=== PATIENT | male | born 1935 | race Caucasian/White ===

== ENCOUNTER 2017-07-31 09:14 | Inpatient (IN) | payer MEDICARE, MEDICAID ==
--- NOTE | 2017-07-31 09:51 | ED Physician Chart ---
ED Chief Complaint/HPI - Patient Information Date Seen:: 07/31/17 Time Seen:: 09:35 Chief Complaint:: penitentiary placement History of Present Illness:: Family wants the patient placed in a penitentiary. 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 He has a private physician in [place] who did recent laboratory tests which showed some liver function abnormality. Patient's had no recent fever. No weight loss. Patient's had confusion for about 1 year. Allergies:: Allergies Allergy/AdvReac Type Severity Reaction Status Date / Time No Known Allergies Allergy Verified 07/31/17 09:31 Vitals:: Vital Signs - 8 hr 07/31/17 09:32 Temp 97.2 F HR 75 RR 16 BP 135/62 O2 Sat % 96 Historian:: Family Member Review:: Nurse's Note Reviewed ED Review of Systems - Review of Systems General/Constitutional: No fever, No chills Skin: No skin lesions Head: No headache Eyes: No loss of vision ENT: No earache Neck: No neck pain Cardio Vascular: No chest pain Pulmonary: No SOB GI: No nausea, No vomiting, No diarrhea G/U: No dysuria Musculoskeletal: No bone or joint pain Endocrine: No polyuria, No polydipsia Psychiatric: Prior psych history, Other (dementia) Hematopoietic: No bruising Allergic/Immuno: No urticaria Neurological: No syncope, No focal symptoms ED Past Medical History - Past Medical History Past Medical History: Dementia Family History: HTN, Other (hyperlipidemia) Social History: Non Smoker, No Alcohol, Other (drank alcohol in moderation formally; may have smoked cigarettes slightly in the past) Surgical History: other (left forearm for fracture) Psychiatricy History: Dementia Medication: Reviewed Family Medical History - Family Member Mother History Unknown: Yes ED Physical Exam - Physical Examination General/Constitutional: Well-developed, well-nourished, Alert, No distress Head: Atraumatic Eyes: Lids, conjuctiva normal, PERRL Other Eyes comments:: Arcus senilis Skin: Nl inspection, No rash, No skin lesions, No ecchymosis, Well hydrated, No lymphadenopathy ENMT: External ears, nose nl, Lips, teeth, gums nl, Oropharynx nl Neck: No nuchal rigidity Respiratory: Nl effort/Exclusion, Clear to Auscultation Cardio Vascular: RRR, No murmur, gallop, rubs, NL S1 S2 GI: No tenderness/rebounding/guarding, No organomegaly, No hernia, Normal BS's, Nondistended : No CVA tenderness Extremities: No tenderness or effusion Neuro/Psych: No focal deficits Misc: No paraspinal tenderness ED Labs/Radiology/EKG Results - Lab Results Results: Laboratory Results - last 24 hr 07/31/17 07/31/17 07/31/17 09:55 09:55 09:55 WBC 7.3 RBC 4.93 Hgb 14.4 Hct 43.6 MCV 88.5 MCH 29.2 MCHC Differential 33.0 RDW 14.4 Plt Count 265 MPV 8.0 Neutrophils % 74.6 Lymphocytes % 19.3 L Monocytes % 5.1 Eosinophils % 0.7 Basophils % 0.3 Sodium 135 L Potassium 3.5 Chloride 103 Carbon Dioxide 27.0 Anion Gap 8.5 BUN 14 Creatinine 0.9 Est GFR ( Amer) TNP Est GFR (Non-Af Amer) TNP BUN/Creatinine Ratio 15.6 Glucose 79 Calcium 9.4 Magnesium 2.1 Total Bilirubin 0.8 AST 20 ALT 8 Alkaline Phosphatase 90 Ammonia Total Protein 6.6 Albumin 3.5 L Globulin 3.1 Albumin/Globulin Ratio 1.1 TSH Urine Source Urine Color Urine Clarity Urine pH Ur Specific [place] Urine Protein Urine Glucose (UA) Urine Ketones Urine Blood Urine Nitrate Urine Bilirubin Urine Urobilinogen Ur Leukocyte Esterase Urine RBC Urine WBC Ur Epithelial Cells Urine Bacteria Coarse Granular Casts Urine Mucus 07/31/17 07/31/17 07/31/17 09:55 09:55 10:00 WBC RBC Hgb Hct MCV MCH MCHC Differential RDW Plt Count MPV Neutrophils % Lymphocytes % Monocytes % Eosinophils % Basophils % Sodium Potassium Chloride Carbon Dioxide Anion Gap BUN Creatinine Est GFR ( Amer) Est GFR (Non-Af Amer) BUN/Creatinine Ratio Glucose Calcium Magnesium Total Bilirubin AST ALT Alkaline Phosphatase Ammonia 32 Total Protein Albumin Globulin Albumin/Globulin Ratio TSH 1.73 Urine Source RANDOM Urine Color YELLOW Urine Clarity CLEAR Urine pH 5.5 Ur Specific [place] 1.015 Urine Protein NEGATIVE Urine Glucose (UA) NEGATIVE Urine Ketones NEGATIVE Urine Blood MODERATE H Urine Nitrate NEGATIVE Urine Bilirubin NEGATIVE Urine Urobilinogen 1.0 Ur Leukocyte Esterase NEGATIVE Urine RBC 5-10 H Urine WBC 2-5 Ur Epithelial Cells MODERATE Urine Bacteria 1+ H Coarse Granular Casts 2-5 H Urine Mucus FEW - Radiology Results Results: Chest x-ray showed slight pleural effusion or reaction at the left base but was otherwise normal. CT of the head showed atrophy only. - EKG Interpretations Rate & Rhythm: normal sinus rhythm with a rate is 68 [place]: normal axis Comments:: T wave flattening in leads 3 and aVF ED Septic Shock - . Is Septic Shock (SBP<90, OR Lactate>4 mmol\L) present?: No - <6hrs of presentation: Vital Signs: Vital Signs - 8 hr 07/31/ 09:32 Temp 97.2 F HR 75 RR 16 BP 135/62 O2 Sat % 96 ED Reassessment (Disposition) - Reassessment Reassessment Condition:: Unchanged - Diagnosis Diagnosis:: Altered mental status; dementia - Patient Disposition Admitted to:: Med/Surg Spoke to:: Marcos Long Admitting Medical Physician:: Marcos Long Condition at Disposition:: Stable, Unchanged
[2017-07-31 10:06] LABS: % BASOPHILS 0.3 % (0.0-2.0); % EOSINOPHILS 0.7 % (0.0-5.0); % LYMPHOCYTES 19.3 % (20.0-50.0); % MONOCYTES 5.1 % (2.0-10.0); % NEUTROPHILS 74.6 % (40.0-80.0); EOSINOPHILE ABSOLUTE 0.1 Th/cmm (0.1-0.4); HEMATOCRIT 43.6 % (41.0-60); HEMOGLOBIN 14.4 gm/dL (12-16); LYMPHOCYTE ABSOLUTE 1.4 Th/cmm (1.5-3.0); MEAN CELL VOLUME 88.5 fl (80-99); MEAN CORPUSCULAR HEMOGLOBIN 29.2 pg (27.0-31.0); MONOCYTE ABSOLUTE 0.4 Th/cmm (0.3-1.0); NEUTROPHILE ABSOLUTE 5.4 Th/cmm (1.8-8.0); PLATELET COUNT 265 Th/cmm (150-400); RED BLOOD COUNT 4.93 Mil/cmm (3.80-5.80); RED CELL DISTRIBUTION WIDTH 14.4 % (11.5-20.0); WHITE BLOOD COUNT 7.3 Th/cmm (4.8-10.8)
[2017-07-31 10:19] LABS: ALB/GLOB RATIO 1.1 (1.0-1.8); ALBUMIN 3.5 gm/dL (4.2-5.5); ALKALINE PHOSPHATASE 90 U/L (34-104); ANION GAP 8.5 (7.0-16.0); BILIRUBIN,TOTAL 0.8 mg/dL (0.3-1.0); BUN - UREA NITROGEN 14 mg/dL (7-25); CALCIUM SERUM 9.4 mg/dL (8.6-10.3); CHLORIDE 103 mEq/L (98-107); CREATININE - SERUM 0.9 mg/dL (0.7-1.3); GLUCOSE 79 mg/dL (70-105); POTASSIUM SERUM 3.5 mEq/L (3.5-5.1); SGOT 20 U/L (13-39); SGPT/ALT 8 U/L (7-52); SODIUM SERUM 135 mEq/L (136-145); TOTAL PROTEIN,SERUM 6.6 gm/dL (6.0-8.3)
[2017-07-31 10:49] LABS: URINE MICROSCOPIC INDICATED? YES; URINE SOURCE RANDOM
[2017-07-31 10:52] LABS: URINE BILIRUBIN NEGATIVE (NEGATIVE); URINE BLOOD MODERATE (NEGATIVE); URINE GLUCOSE (UA) NEGATIVE (NEGATIVE); URINE KETONE NEGATIVE (NEGATIVE); URINE LEUKOCYTE ESTERASE NEGATIVE (NEGATIVE); URINE NITRATE NEGATIVE (NEGATIVE); URINE PH 5.5 (4.6 - 8.0); URINE PROTEIN NEGATIVE (NEGATIVE)
[2017-07-31 10:59] LABS: URINE CLARITY CLEAR (CLEAR); URINE COLOR YELLOW
[2017-07-31 11:01] LABS: URINE BACTERIA 1+ /hpf (NONE SEEN); URINE EPITHELIAL CELLS MODERATE /lpf (FEW)
--- NOTE | 2017-07-31 11:26 | Diagnostic Imaging Report ---
Portable chest x-ray History: Shortness of breath Allowing for portable technique the heart size is normal. No focal pulmonary parenchymal processes. No hilar or mediastinal abnormalities. Impression: No acute abnormalities.
--- NOTE | 2017-07-31 11:30 | Diagnostic Imaging Report ---
CT scan of the brain without intravenous contrast HISTORY: Stroke, CVA Total DLP equals 760 CTDI equals 41.6 Axial sections were obtained from the base of the skull to the vertex. There is enlargement of the ventricular system along with enlargement of cerebral sulci and subarachnoid cisterns reflecting generalized atrophy. There is rather extensive abnormal hypodensity throughout the supratentorial white matter regions. No significant mass effect. The findings may be associated with chronic small vessel ischemic disease. If necessary, an MRI exam would provide additional assessment and evaluation. No acute intracerebral hemorrhage. Again, no mass effect or shift of midline structures. No localized extra-axial masses or abnormal fluid collections. Atherosclerotic calcification is seen in the region of the vertebral and basilar arteries at the base of the skull. IMPRESSION: 1. No acute focal abnormalities 2. Rather extensive supratentorial white matter changes. The findings may reflect chronic small vessel ischemic disease. If needed, an MRI exam would provide additional assessment and evaluation. 3. Cerebral atrophy 4. Atherosclerotic vascular changes
[2017-07-31] MEDS ORDERED: Maalox 30 mL Cup PO PRN (13:49)
[2017-07-31] MEDS ORDERED: guaiFENesin 200 MG/10 ML UDC PO PRN (13:49)
[2017-07-31] MEDS ORDERED: Albuterol Nebulizer 2.5mg/3mL HHN PRN (13:49)
[2017-07-31] MEDS ORDERED: D5-0.45NS 1,000 ML IV SCH (14:00)
[2017-07-31] MEDS ORDERED: Haloperidol Lactate 5 mg/mL 1mL Vial IM ONE (16:13)
[2017-07-31] MEDS: Levofloxacin 500mg/100mL 500 MG/100 ML BAG IV SCH (17:42)
[2017-07-31 18:47] VITALS: BP 143/59
[2017-07-31] MEDS ORDERED: Influenza Vaccine 0.5 mL Syr IM ONE (18:58)
[2017-07-31] MEDS ORDERED: Pneumococcal Vaccine 0.5 mL Vial IM ONE (18:58)
--- NOTE | 2017-07-31 20:55 | History and Physical ---
History of Present Illness - HPI Chief Complaint: forgetfulness, frequent falls, poor oral intake HPI: This is a 82 year old male admitted to the medr unit. According to daughter at bedside they have noticed that patient has been having frequent falls with poor oral intake. She states that she recently took the patient to their PCP's office and stated that he had some abnormal LFT'S. Vital Signs: Last Vital Signs Temp 97 F 07/31/17 20:00 Pulse 93 07/31/17 20:00 Resp 20 07/31/17 20:00 BP 128/72 07/31/17 20:00 Pulse Ox 100 07/31/17 20:00 Past Medical History Other History: dementia Family Medical History - Family Member Mother History Unknown: Yes Social History Smoke: Quit Alcohol: None Drugs: None Lives: With Family - Medications Home Medications: Home Medication Medication Instructions Recorded Type Aspirin EC [Ecotrin] 1 tab PO DAILY 07/31/17 History Atorvastatin Calcium [Lipitor] 1 tab PO HS 07/31/17 History Clopidogrel [Plavix] 1 tab PO DAILY 07/31/17 History Docusate Sodium [Colace] 250 mg PO BID 07/31/17 History Famotidine [Pepcid] 20 mg PO DAILY 07/31/17 History Memantine [Namenda] 1 tab PO DAILY 07/31/17 History - Allergies Allergies/Adverse Reactions: Allergies Allergy/AdvReac Type Severity Reaction Status Date / Time No Known Allergies Allergy Verified 07/31/17 09:31 Review of Systems - Review of Systems Constitutional: Report: No Significant Eyes: Report: No Significant ENT: Report: No Significant Respiratory: Report: No Significant Cardiovascular: Report: No Significant Neurological: Report: No Significant Physical Exam - Physical Exam HEENT: Report: Ears Nose Throat within normal limits Neck: Report: Within normal limits Cardiovascular Systems: Report: +s1/s2 noted, Regular, Rate and Rhythm Respiratory: Report: Breath Sounds are within normal limits Back: Report: Inspection of back is within normal limits. Extremities: Report: Non-tender to palpation. Skin: Report: Color of skin is within normal limits Neuro/Psych: Report: Other (awake, alert x1 to name ) - Assessment Assessment: failure to thrive acute uti dementia frequent falls - Plan Plan: ivf for hydration iv levaquin cbc/bmp/lft/hgba1c/lipid panel in am fall precautions psych eval continue current orders
[2017-07-31] MEDS: Atorvastatin Calcium 10 MG TAB PO SCH (22:07)
[2017-08-01 06:43] LABS: % BASOPHILS 1.8 % (0.0-2.0); % EOSINOPHILS 1.6 % (0.0-5.0); % LYMPHOCYTES 22.4 % (20.0-50.0); % MONOCYTES 6.5 % (2.0-10.0); % NEUTROPHILS 67.7 % (40.0-80.0); BASOPHILE ABSOLUTE 0.1 Th/cumm (0-0.2); EOSINOPHILE ABSOLUTE 0.1 Th/cmm (0.1-0.4); HEMATOCRIT 40.4 % (41.0-60); HEMOGLOBIN 13.6 gm/dL (12-16); LYMPHOCYTE ABSOLUTE 1.3 Th/cmm (1.5-3.0); MEAN CELL VOLUME 89.2 fl (80-99); MEAN CORPUSCULAR HEMOGLOBIN 29.9 pg (27.0-31.0); MEAN CORPUSCULAR HGB CONC 33.5 pg (28.0-36.0); MEAN PLATELET VOLUME 8.1 fl; MONOCYTE ABSOLUTE 0.4 Th/cmm (0.3-1.0); NEUTROPHILE ABSOLUTE 3.8 Th/cmm (1.8-8.0); PLATELET COUNT 227 Th/cmm (150-400); RED BLOOD COUNT 4.53 Mil/cmm (3.80-5.80); RED CELL DISTRIBUTION WIDTH 14.8 % (11.5-20.0)
[2017-08-01 06:48] LABS: WHITE BLOOD COUNT 5.7 Th/cmm (4.8-10.8)
--- NOTE | 2017-08-01 07:00 | Progress Notes ---
DATE: 08/01/2017 AGE: 82. SEX: Male. PHYSICIAN: Dr. Long. PACKING AND STAMPING MACHINE OPERATOR: Dr. Meza. TYPE OF THE REPORT: Psychiatric consult. REASON FOR THE CONSULT: Evaluating patient's mental status and poor oral intake. HISTORY OF PRESENT ILLNESS: The patient is an 82-year-old male who was admitted to the hospital because of poor oral intake and also the patient has been having frequent falls. The patient also has some of liver function tests according to the admission report. Chart reviewed and patient interviewed. The patient seems to be slightly confused and forgetful. He also is anxious. Also seems to be slightly dehydrated. The patient also was not able to tell me about today's date and he seems to be forgetful. He was a poor historian and most of the information obtained from the chart. The patient's family wants the patient to be placed in a longterm. His has been taking care of him and she is going to surgery and the family has not been able to care of them. He also has been forgetful and confused. PAST PSYCHIATRIC HISTORY: Noncontributory except for dementia. PAST MEDICAL HISTORY: Noncontributory. SOCIAL HISTORY: The patient currently lives with his family. No known alcohol or street drug use. ALLERGIES: No known allergies. MENTAL STATUS EXAM: The patient appears his stated age. Anxious. Disheveled. Calm. Thought processes are with poverty of speech. The patient denied any hallucinations or delusions, but seems to be slightly paranoid. The patient denied any thoughts of suicide or homicide. The patient is alert, but seems to be confused. Impaired immediate and recent memory, but intact remote memory. Poor insight and poor judgment. ASSESSMENT: PRIMARY DIAGNOSIS: Depressive disorder, unspecified. SECONDARY DIAGNOSIS: Dementia, moderate, with psychotic features. TREATMENT PLAN: We will increase Namenda to 5 mg twice a day. Also, we will start the patient on Remeron 7.5 mg at bedtime and we will continue to follow up. Thanks to Dr. Long and we will follow up with you. JOB# [id number]
[2017-08-01 07:16] LABS: ALB/GLOB RATIO 1.2 (1.0-1.8); ALBUMIN 3.2 gm/dL (4.2-5.5); ALKALINE PHOSPHATASE 74 U/L (34-104); ANION GAP 8.1 (7.0-16.0); BILIRUBIN,TOTAL 0.8 mg/dL (0.3-1.0); BUN - UREA NITROGEN 17 mg/dL (7-25); CALCIUM SERUM 9.2 mg/dL (8.6-10.3); CARBON DIOXIDE 25.9 mEq/L (21.0-31.0); CHLORIDE 108 mEq/L (98-107); CHOLESTEROL 151 mg/dL (<200); GLUCOSE 76 mg/dL (70-105); HDL -HIGH DENSITY LIPOPROTEIN 46 mg/dL (23-92); SGOT 24 U/L (13-39); SGPT/ALT 9 U/L (7-52); SODIUM SERUM 138 mEq/L (136-145); TOTAL PROTEIN,SERUM 5.9 gm/dL (6.0-8.3); TRIGLYCERIDES 59 mg/dL (<150)
[2017-08-01 07:17] LABS: BILIRUBIN,DIRECT 0.08 mg/dL (0.0-0.2)
--- NOTE | 2017-08-01 08:12 | Diagnostic Imaging Report ---
Portable chest x-ray HISTORY: Cough The heart size is difficult to assess with portable technique in a poor inspiration. Compared with the prior exam of July 31, 2017, pleural reaction noted about the left costophrenic angle suggesting pleural thickening. A minimal effusion cannot be definitely excluded. IMPRESSION: 1. No significant change from July 31, 2017 2. Pleural reaction about the left gastric angle suggesting pleural thickening. A minimal effusion cannot be definitely excluded.
--- NOTE | 2017-08-01 11:33 | General Progress Note ---
Subjective - Review of Systems Events since last encounter: poor oral intake in no acute distress Objective - Results Result Diagrams: 08/01/17 06:20 08/01/17 06:20 Recent Labs: Laboratory Last Values WBC 5.7 Th/cmm (4.8-10.8) D 08/01/17 06:20 RBC 4.53 Mil/cmm (3.80-5.80) 08/01/17 06:20 Hgb 13.6 gm/dL (12-16) 08/01/17 06:20 Hct 40.4 % (41.0-60) L 08/01/17 06:20 MCV 89.2 fl (80-99) 08/01/17 06:20 MCH 29.9 pg (27.0-31.0) 08/01/17 06:20 MCHC Differential 33.5 pg (28.0-36.0) 08/01/17 06:20 RDW 14.8 % (11.5-20.0) 08/01/17 06:20 Plt Count 227 Th/cmm (150-400) 08/01/17 06:20 MPV 8.1 fl 08/01/17 06:20 Neutrophils % 67.7 % (40.0-80.0) 08/01/17 06:20 Lymphocytes % 22.4 % (20.0-50.0) 08/01/17 06:20 Monocytes % 6.5 % (2.0-10.0) 08/01/17 06:20 Eosinophils % 1.6 % (0.0-5.0) 08/01/17 06:20 Basophils % 1.8 % (0.0-2.0) 08/01/17 06:20 Sodium 138 mEq/L (136-145) 08/01/17 06:20 Potassium 4.0 mEq/L (3.5-5.1) 08/01/17 06:20 Chloride 108 mEq/L (98-107) H 08/01/17 06:20 Carbon Dioxide 25.9 mEq/L (21.0-31.0) 08/01/17 06:20 Anion Gap 8.1 (7.0-16.0) 08/01/17 06:20 BUN 17 mg/dL (7-25) 08/01/17 06:20 Creatinine 1.0 mg/dL (0.7-1.3) 08/01/17 06:20 Est GFR ( Amer) TNP 08/01/17 06:20 Est GFR (Non-Af Amer) TNP 08/01/17 06:20 BUN/Creatinine Ratio 17.0 08/01/17 06:20 Glucose 76 mg/dL (70-105) 08/01/17 06:20 Calcium 9.2 mg/dL (8.6-10.3) 08/01/17 06:20 Magnesium 2.1 mg/dL (1.9-2.7) 07/31/17 09:55 Total Bilirubin 0.8 mg/dL (0.3-1.0) 08/01/17 06:20 Direct Bilirubin 0.08 mg/dL (0.0-0.2) 08/01/17 06:20 AST 24 U/L (13-39) 08/01/17 06:20 ALT 9 U/L (7-52) 08/01/17 06:20 Alkaline Phosphatase 74 U/L (34-104) 08/01/17 06:20 Ammonia 32 umol/L (16-53) 07/31/17 09:55 Total Protein 5.9 gm/dL (6.0-8.3) L 08/01/17 06:20 Albumin 3.2 gm/dL (4.2-5.5) L 08/01/17 06:20 Globulin 2.7 gm/dL 08/01/17 06:20 Albumin/Globulin Ratio 1.2 (1.0-1.8) 08/01/17 06:20 Triglycerides 59 mg/dL (<150) 08/01/17 06:20 Cholesterol 151 mg/dL (<200) 08/01/17 06:20 LDL Cholesterol Direct 97 mg/dL (75-193) 08/01/17 06:20 HDL Cholesterol 46 mg/dL (23-92) 08/01/17 06:20 TSH 1.73 uIU/ml (0.34-5.60) 07/31/17 09:55 Urine Source RANDOM 07/31/17 10:00 Urine Color YELLOW 07/31/17 10:00 Urine Clarity CLEAR (CLEAR) 07/31/17 10:00 Urine pH 5.5 (4.6 - 8.0) 07/31/17 10:00 Ur Specific [place] 1.015 (1.005-1.030) 07/31/17 10:00 Urine Protein NEGATIVE mg/dL (NEGATIVE) 07/31/17 10:00 Urine Glucose (UA) NEGATIVE mg/dL (NEGATIVE) 07/31/17 10:00 Urine Ketones NEGATIVE mg/dL (NEGATIVE) 07/31/17 10:00 Urine Blood MODERATE (NEGATIVE) H 07/31/17 10:00 Urine Nitrate NEGATIVE (NEGATIVE) 07/31/17 10:00 Urine Bilirubin NEGATIVE (NEGATIVE) 07/31/17 10:00 Urine Urobilinogen 1.0 E.U./dL (0.2 - 1.0) 07/31/17 10:00 Ur Leukocyte Esterase NEGATIVE (NEGATIVE) 07/31/17 10:00 Urine RBC 5-10 /hpf (0-5) H 07/31/17 10:00 Urine WBC 2-5 /hpf (0-5) 07/31/17 10:00 Ur Epithelial Cells MODERATE /lpf (FEW) 07/31/17 10:00 Urine Bacteria 1+ /hpf (NONE SEEN) H 07/31/17 10:00 Coarse Granular Casts 2-5 /lpf (NONE SEEN) H 07/31/17 10:00 Urine Mucus FEW /lpf (FEW) 07/31/17 10:00 - Physical Exam Vitals and I&O: Vital Signs Temp 96.8 F 08/01/17 10:00 Pulse 66 08/01/17 10:00 Resp 19 08/01/17 10:00 BP 140/70 08/01/17 10:00 Pulse Ox 95 08/01/17 10:00 Intake & Output 07/31/17 08/01/17 08/01/17 18:59 06:59 18:59 Intake Total 450 100 Output Total 50 Balance 450 50 Weight (lbs) 80.739 kg 71.169 kg Intake: Oral 450 100 Output: Urine 50 Other: # Voids 3 1 # Bowel Movements 1 0 Stool Characteristics Soft Soft Active Medications: Current Medications Acetaminophen (Tylenol) 650 mg PO Q4HR PRN PRN Reason: Pain Or Fever above 101 Stop: 09/29/17 13:48 Al Hydrox/Mg Hydrox/Simethicone (Maalox) 30 ml PO Q6HR PRN PRN Reason: Dyspepsia Stop: 09/29/17 13:48 Albuterol Sulfate (Albuterol 2.5mg/3ml Neb Ud) 2.5 mg HHN Q2HRT PRN PRN Reason: Shortness of Breath or Wheeze Stop: 09/29/17 13:48 Aspirin (Ecotrin) 81 mg PO DAILY [facility] Stop: 09/30/17 08:59 Last Admin: 08/01/17 09:30 Dose: 81 mg Atorvastatin Calcium (Lipitor) 10 mg PO HS BIBI PRN Reason: Protocol Stop: 09/29/17 20:59 Last Admin: 07/31/17 22:07 Dose: Not Given Clopidogrel Bisulfate (Plavix) 75 mg PO DAILY [facility] Stop: 09/30/17 08:59 Last Admin: 08/01/17 09:30 Dose: 75 mg Docusate Sodium (Colace) 250 mg PO BID [facility] Stop: 09/29/17 16:59 Last Admin: 08/01/17 09:30 Dose: 250 mg Famotidine (Pepcid) 20 mg PO DAILY [facility] Stop: 09/30/17 08:59 Last Admin: 08/01/17 09:30 Dose: 20 mg Guaifenesin (Robitussin) 100 mg PO Q4H PRN PRN Reason: Cough or Congestion Stop: 09/29/17 13:48 Dextrose/Sodium Chloride (D5-0.45ns) 1,000 mls @ 70 mls/hr IV .[id number] [facility] Stop: 09/29/17 13:59 Last Admin: 07/31/17 17:43 Dose: 70 mls/hr Levofloxacin (Levaquin Pb) 500 mg in 100 mls @ 100 mls/hr IV Q24HR BIBI Stop: 09/29/17 13:59 Last Admin: 07/31/17 17:42 Dose: 100 mls/hr Lorazepam (Ativan) 1 mg IVP Q4HR PRN; Protocol PRN Reason: Agitation Stop: 09/29/17 16:53 Last Admin: 08/01/17 09:28 Dose: 1 mg Memantine (Namenda) 5 mg PO BID [facility] Stop: 09/30/17 08:59 Last Admin: 08/01/17 09:30 Dose: 5 mg Mirtazapine (Remeron) 7.5 mg PO HS BIBI PRN Reason: Protocol Stop: 09/30/17 20:59 Ondansetron HCl (Zofran) 4 mg IV Q8H PRN PRN Reason: Nausea / Vomiting Stop: 09/29/17 13:48 Sodium Chloride (Saline Flush) 10 ml IV QSHIFT [facility] Stop: 09/29/17 19:59 Last Admin: 08/01/17 10:12 Dose: 10 ml Zolpidem Tartrate (Ambien) 10 mg PO HS PRN PRN Reason: Insomnia Stop: 09/29/17 13:48
[2017-08-01] MEDS ORDERED: Probiotic Screen MC PRN (12:15)
[2017-08-01] MEDS: Levofloxacin 500mg/100mL 500 MG/100 ML BAG IV SCH (13:50)
[2017-08-01 16:48] LABS: A1C % 5.2 % (4.0-6.0)
[2017-08-01] MEDS: Atorvastatin Calcium 10 MG TAB PO SCH (20:58)
[2017-08-02 07:03] LABS: % BASOPHILS 0.2 % (0.0-2.0); % EOSINOPHILS 0.8 % (0.0-5.0); % LYMPHOCYTES 15.3 % (20.0-50.0); % MONOCYTES 9.5 % (2.0-10.0); % NEUTROPHILS 74.2 % (40.0-80.0); EOSINOPHILE ABSOLUTE 0.1 Th/cmm (0.1-0.4); HEMATOCRIT 43.8 % (41.0-60); HEMOGLOBIN 14.4 gm/dL (12-16); LYMPHOCYTE ABSOLUTE 1.2 Th/cmm (1.5-3.0); MEAN CELL VOLUME 88.4 fl (80-99); MEAN CORPUSCULAR HEMOGLOBIN 29.1 pg (27.0-31.0); MEAN CORPUSCULAR HGB CONC 32.9 pg (28.0-36.0); MEAN PLATELET VOLUME 8.3 fl; MONOCYTE ABSOLUTE 0.8 Th/cmm (0.3-1.0); NEUTROPHILE ABSOLUTE 5.8 Th/cmm (1.8-8.0); PLATELET COUNT 247 Th/cmm (150-400); RED BLOOD COUNT 4.96 Mil/cmm (3.80-5.80); RED CELL DISTRIBUTION WIDTH 14.3 % (11.5-20.0)
[2017-08-02 07:05] LABS: WHITE BLOOD COUNT 7.9 Th/cmm (4.8-10.8)
[2017-08-02 07:08] LABS: ALB/GLOB RATIO 1.3 (1.0-1.8); ALBUMIN 3.6 gm/dL (4.2-5.5); ALKALINE PHOSPHATASE 79 U/L (34-104); ANION GAP 10.2 (7.0-16.0); BILIRUBIN,TOTAL 0.8 mg/dL (0.3-1.0); BUN - UREA NITROGEN 15 mg/dL (7-25); CALCIUM SERUM 9.5 mg/dL (8.6-10.3); CARBON DIOXIDE 21.2 mEq/L (21.0-31.0); CHLORIDE 110 mEq/L (98-107); CREATININE - SERUM 0.8 mg/dL (0.7-1.3); GLUCOSE 72 mg/dL (70-105); POTASSIUM SERUM 3.4 mEq/L (3.5-5.1); SGOT 56 U/L (13-39); SGPT/ALT 16 U/L (7-52); SODIUM SERUM 138 mEq/L (136-145); TOTAL PROTEIN,SERUM 6.3 gm/dL (6.0-8.3)
[2017-08-02] MEDS ORDERED: Lactobacillus Rhamnosus GG 15 Billion CFU CAP.SPRINK PO SCH (09:00)
--- NOTE | 2017-08-08 22:55 | Discharge Summary ---
DATE OF DISCHARGE: 08/02/2017 The patient was admitted on 07/31/2017 and was discharged to [facility] on 08/02/2017. The patient is known to have history of underlying psychosis, was initially admitted to the medical floor for failure to thrive, UTI, dementia and history of recurrent falls. The patient had a complete workup done and including antibiotics. The patient was in stable condition on 08/02/2017, with final diagnoses of severe psychosis, UTI improving, severe dementia, malnutrition. The patient was sent to [facility] in stable condition. JOB# [id number]
== END 2017-08-02 12:20 | DRG 689 ==
LOC: ER 09:14 → MSI 12:10
PROVIDERS: ADMIT Internal Medicine; ATTEND Internal Medicine
DX: N39.0 Urinary tract infection, site not specified (principal); G92 Toxic encephalopathy; F03.91 Unspecified dementia, unspecified severity, with behavioral disturbance; R62.7 Adult failure to thrive; F32.9 Major depressive disorder, single episode, unspecified; Z91.81 History of falling; Z82.49 Family history of ischemic heart disease and other diseases of the circulatory system; Z79.82 Long term (current) use of aspirin
CPT/HCPCS: 36415-UA; 70450-TC; 71045-TC; 80048-TC; 80053-TC; 80061-TC; 80076-TC; 81001-TC; 82140-TC; 83036-90; 83735-TC; 84443-TC; 85025-TC; 87086-90; 93005; 94760; J1200; J1630; J1956; J2060; Z7610

== ENCOUNTER 2017-08-02 12:34 | Inpatient (IN) | payer MEDICARE, MEDICAID ==
--- NOTE | 2017-08-02 13:11 | Internal Medicine Prog Note ---
Internal Medicine Subjective - Subjective Service Date: 08/02/17 Patient seen and examined:: with staff Patient is:: awake, verbal Per staff patient has:: tolerating meds Internal Medicine Objective - Physical Exam Vitals and I&O: Intake & Output 08/01/17 08/02/17 08/02/17 18:59 06:59 18:59 Weight (lbs) 156 lb General: alert HEENT: NC/AT, PERRLA Neck: Supple Lungs: CTAB Cardiovascular: RRR, Normal S1, Normal S2 Abdomen: soft, non-tender, non-distended, positive bowel sound Internal Medicine Assmt/Plan - Assessment Assessment: failure to thrive acute uti dementia frequent falls - Plan Plan: fall precautions continue current orders
[2017-08-02 13:34] VITALS: BP 121/67
[2017-08-02] MEDS ORDERED: guaiFENesin 200 MG/10 ML UDC PO PRN (13:34)
[2017-08-02] MEDS ORDERED: Albuterol Nebulizer 2.5mg/3mL HHN PRN (13:34)
[2017-08-02] MEDS ORDERED: Maalox 30 mL Cup PO PRN (13:34)
[2017-08-02] MEDS: Atorvastatin Calcium 10 MG TAB PO SCH (21:20)
--- NOTE | 2017-08-03 09:25 | Diagnostic Imaging Report ---
Left shoulder 3 views Indication: Fall Comparison: none Findings: Mild degenerative changes are noted. No evidence of an acute fracture or dislocation. Mild osteophytic spurring is noted. No focal soft tissue swelling. Impression: No evidence of an acute fracture. Mild degenerative changes. In the setting of trauma, if clinical symptoms persist and there is continued concern for an occult fracture, follow up exams in 5-7 days is suggested.
--- NOTE | 2017-08-03 09:27 | Diagnostic Imaging Report ---
Right shoulder 3 views Indication: Fall Comparison: none Findings: Moderate degenerative changes are noted. High riding humeral head is noted. There is a marginal osteophytic spurring is noted. No evidence of acute fracture, dislocation. Impression: No evidence of an acute fracture. High riding humeral head which may be due to chronic rotator cuff tear. Please correlate with clinical history. Moderate degenerative changes. In the setting of trauma, if clinical symptoms persist and there is continued concern for an occult fracture, follow up exams in 5-7 days is suggested.
[2017-08-03] MEDS: Lactobacillus Rhamnosus GG 15 Billion CFU CAP.SPRINK PO SCH (09:53)
--- NOTE | 2017-08-03 19:03 | History & Physical ---
ADMIT DATE: 08/03/2017 CHIEF COMPLAINT: Agitation. HISTORY OF PRESENT ILLNESS: This is an 82-year-old male who was admitted to the Emergency Room. According to ____, the patient lives at home prior to hospitalization and otherwise the patient was sent to the Emergency Room due to agitation and confusion. REVIEW OF SYSTEMS: GENERAL: This is an 82-year-old male that appears as stated. No fever, no chills. HEAD: No headache. No dizziness. EYES: No eye pain, no blurring of vision. NECK: No neck pain, no nuchal rigidity. CHEST: No chest pain. No palpitation. PULMONARY: No coughing. No chest pain or shortness of breath. GASTROINTESTINAL: No diarrhea, no constipation, no abdominal pain. MUSCULOSKELETAL: No joint pain. No muscle pain. SOCIAL HISTORY: The patient lives at home with family prior to hospitalization. PAST SURGICAL HISTORY: Unremarkable. FAMILY HISTORY: Unremarkable. PSYCHIATRIC HISTORY: Includes schizophrenia. PAST MEDICAL HISTORY: Includes diabetes, osteoarthritis, hyperlipidemia, hypertension, coronary artery disease, gastroesophageal reflux disease, and dementia. PHYSICAL EXAMINATION: VITAL SIGNS: Temperature 96.5, heart rate of 88, blood pressure 136/89, respirations 21, and 96% on room air. HEENT: Head is atraumatic and normocephalic. Eyes; bilateral conjunctivae are clear. Bilateral pupils are equal, round, and reactive. NECK: Supple. No JVD. CARDIOVASCULAR: S1 and S2 without murmur. PULMONARY: Clear to auscultation. GASTROINTESTINAL: Soft and nontender without guarding. Positive bowel sounds. MUSCULOSKELETAL: No clubbing. No cyanosis noted. ASSESSMENT: 1. Psychosis. 2. Dementia. 3. Hypertension. 4. Hyperlipidemia. 5. Coronary artery disease. 6. Gastroesophageal reflux disease. 7. Osteoarthritis. PLAN: We will keep the patient and admit the patient in Psychiatric Unit. We will follow up with the psychiatrist to monitor the patient's condition and behavior. We will do medication reconciliation accordingly and we are going to monitor the patient's prognosis. Treatment plans were discussed with the patient's nurse. Treatment plans were discussed with Dr. Long. JOB# [id number]
[2017-08-03] MEDS: Atorvastatin Calcium 10 MG TAB PO SCH (21:32)
--- NOTE | 2017-08-04 00:10 | Consultation ---
DATE OF CONSULTATION: 08/03/[address] Meza. CHIEF COMPLAINT: "I am okay." HISTORY OF PRESENT ILLNESS: The patient is an 82-year-old male who was brought in here to [facility] and transferred to the geropsychiatric after the patient has been observed to be more irritable, agitated, and the failure to thrive. Today on [id number] evaluation, the patient is a poor historian. He does not know exactly where he is. He believes that he is in his house. He does not give much information beyond that. Denies any side effects and no manic and hypomanic symptoms. PAST PSYCHIATRIC HISTORY: Unknown. PAST MEDICAL HISTORY: Includes a history of a failure to thrive and UTI. PAST PSYCHIATRIC HISTORY: History of dementia and frequent falls. LEGAL HISTORY: None. FAMILY PSYCHIATRIC HISTORY: None. PSYCHOSOCIAL ENVIRONMENTAL HISTORY: Very limited historian. CURRENT HOME MEDICATIONS: Include albuterol, aspirin, atorvastatin, and Plavix. PAST MEDICAL HISTORY: Includes a history of hyperlipidemia. MENTAL STATUS EXAMINATION: Mildly irritable, severely memory impairment, disorganized, needing redirection for continue maintaining simple ADLs. Limited insight, judgment and impulse control. Unable to assess immediate, recent memory due to the patient's severe memory impairment. ACUTE FUNCTION: Impairment severe, weakness, and poor coping skills. STRENGTHS: Good family support system. WEAKNESSES: As noted above. LABORATORY DATA: Reviewed. PRIMARY DIAGNOSIS: Dementia with severe behavior disturbances. SECONDARY DIAGNOSIS: None. MEDICAL DIAGNOSES: History of high blood pressure and also dementia. ASSESSMENT AND PLAN: The patient is an 82-year-old male with a history of severe dementia and poor appetite, failure to thrive. We will initiate the patient on mirtazapine 7.5 mg to target the patient's underlying depressive symptoms and poor appetite with Namenda 5 mg p.o. b.i.d. We will obtain more collateral baseline information. ESTIMATED LENGTH OF STAY: Between 5 to 10 days. DISCHARGE CRITERIA: The patient is to demonstrate euthymic mood, no suicidal or homicidal. Good psychiatric followup. Good [id number] interaction. [facility]# [id number]
--- NOTE | 2017-08-04 08:54 | General Progress Note ---
Subjective - Review of Systems Events since last encounter: patient awake alert, in no distress Objective - Physical Exam Vitals and I&O: Vital Signs Temp 96.5 F 08/03/17 15:11 Pulse 83 08/04/17 07:43 Resp 18 08/04/17 07:43 BP 136/89 08/03/17 15:11 Pulse Ox 96 08/04/17 07:43 Intake & Output 08/03/17 08/04/17 08/04/17 18:59 06:59 18:59 Intake Total 1300 Balance 1300 Intake: Oral 1300 Other: # Voids 3 # Bowel Movements 1 Active Medications: Current Medications Acetaminophen (Tylenol) 650 mg PO Q4HR PRN PRN Reason: Pain Or Fever above 101 Stop: 10/01/17 13:33 Al Hydrox/Mg Hydrox/Simethicone (Maalox) 30 ml PO Q6HR PRN PRN Reason: Dyspepsia Stop: 10/01/17 13:33 Albuterol Sulfate (Albuterol 2.5mg/3ml Neb Ud) 2.5 mg HHN Q2HRT PRN PRN Reason: Shortness of Breath or Wheeze Stop: 10/01/17 13:33 Aspirin (Ecotrin) 81 mg PO DAILY [facility] Stop: 10/02/17 08:59 Last Admin: 08/03/17 09:53 Dose: 81 mg Atorvastatin Calcium (Lipitor) 10 mg PO HS BIBI PRN Reason: Protocol Stop: 10/01/17 20:59 Last Admin: 08/03/17 21:32 Dose: 10 mg Clopidogrel Bisulfate (Plavix) 75 mg PO DAILY [facility] Stop: 10/02/17 08:59 Last Admin: 08/03/17 09:53 Dose: 75 mg Docusate Sodium (Colace) 250 mg PO BID [facility] Stop: 10/01/17 16:59 Last Admin: 08/03/17 09:53 Dose: 250 mg Famotidine (Pepcid) 20 mg PO DAILY [facility] Stop: 10/02/17 08:59 Last Admin: 08/03/17 09:53 Dose: 20 mg Guaifenesin (Robitussin) 100 mg PO Q4H PRN PRN Reason: Cough or Congestion Stop: 10/01/17 13:33 Lactobacillus Rhamnosus (Culturelle 15b) 1 each PO DAILY [facility] Stop: 10/02/17 08:59 Last Admin: 08/03/17 09:53 Dose: 1 each Lorazepam (Ativan) 0.5 mg PO Q4HR PRN; Protocol PRN Reason: Anxiety Stop: 09/01/17 13:36 Last Admin: 08/03/17 14:17 Dose: 0.5 mg Memantine (Namenda) 5 mg PO BID BIBI Stop: 10/01/17 16:59 Last Admin: 08/03/17 09:54 Dose: 5 mg Mirtazapine (Remeron) 7.5 mg PO HS BIBI PRN Reason: Protocol Stop: 10/01/17 20:59 Last Admin: 08/03/17 21:31 Dose: 7.5 mg Zolpidem Tartrate (Ambien) 10 mg PO HS PRN PRN Reason: Insomnia Stop: 10/01/17 13:33 Last Admin: 08/03/17 21:33 Dose: 10 mg
[2017-08-04] MEDS: Lactobacillus Rhamnosus GG 15 Billion CFU CAP.SPRINK PO SCH (09:24)
--- NOTE | 2017-08-04 17:28 | Progress Notes ---
DATE: SUBJECTIVE: The patient was seen and evaluated. The patient's chart reviewed. This is a psychiatric followup note. Today on [id number] evaluation, nursing staff reported, the patient presents still very disorganized and ____ redirection. Today on [id number] evaluation, the patient is evaluated while he is in a Gianna chair, extremely poor historian. He does not know exactly where he is at. Beyond that information, he reports just everything is okay, but if he did then derailed. MENTAL STATUS EXAMINATION: Derailed disorganized. ASSESSMENT AND PLAN: An 82-year-old male with a history of severe dementia with poor appetite and failure to thrive. We will continue with the current medication regimen of 7.5 to target the patient's underlying depressive symptoms that exacerbate the patient's severe poor appetite and continue with Namenda. JOB# [id number]
[2017-08-04] MEDS: Atorvastatin Calcium 10 MG TAB PO SCH (21:15)
[2017-08-05] MEDS: Lactobacillus Rhamnosus GG 15 Billion CFU CAP.SPRINK PO SCH (09:35)
--- NOTE | 2017-08-05 12:43 | Internal Medicine Prog Note ---
Internal Medicine Subjective - Subjective Service Date: 08/05/17 Patient is:: awake, verbal Per staff patient has:: tolerating meds Internal Medicine Objective - Physical Exam Vitals and I&O: Vital Signs Temp 97.2 F 08/05/17 05:45 Pulse 81 08/05/17 08:00 Resp 20 08/05/17 08:00 BP 148/76 08/05/17 05:45 Pulse Ox 97 08/05/17 08:00 Intake & Output 08/04/17 08/05/17 08/05/17 18:59 06:59 18:59 Intake Total 900 180 Balance 900 180 Intake: Oral 900 180 Other: # Voids 2 2 # Bowel Movements 0 1 Active Medications: Current Medications Acetaminophen (Tylenol) 650 mg PO Q4HR PRN PRN Reason: Pain Or Fever above 101 Stop: 10/01/17 13:33 Al Hydrox/Mg Hydrox/Simethicone (Maalox) 30 ml PO Q6HR PRN PRN Reason: Dyspepsia Stop: 10/01/17 13:33 Albuterol Sulfate (Albuterol 2.5mg/3ml Neb Ud) 2.5 mg HHN Q2HRT PRN PRN Reason: Shortness of Breath or Wheeze Stop: 10/01/17 13:33 Aspirin (Ecotrin) 81 mg PO DAILY [facility] Stop: 10/02/17 08:59 Last Admin: 08/05/17 09:35 Dose: 81 mg Atorvastatin Calcium (Lipitor) 10 mg PO HS BIBI PRN Reason: Protocol Stop: 10/01/17 20:59 Last Admin: 08/04/17 21:15 Dose: 10 mg Clopidogrel Bisulfate (Plavix) 75 mg PO DAILY [facility] Stop: 10/02/17 08:59 Last Admin: 08/05/17 09:35 Dose: 75 mg Docusate Sodium (Colace) 250 mg PO BID [facility] Stop: 10/01/17 16:59 Last Admin: 08/05/17 09:35 Dose: 250 mg Famotidine (Pepcid) 20 mg PO DAILY [facility] Stop: 10/02/17 08:59 Last Admin: 08/05/17 09:35 Dose: 20 mg Guaifenesin (Robitussin) 100 mg PO Q4H PRN PRN Reason: Cough or Congestion Stop: 10/01/17 13:33 Lactobacillus Rhamnosus (Culturelle 15b) 1 each PO DAILY [facility] Stop: 10/02/17 08:59 Last Admin: 08/05/17 09:35 Dose: 1 each Lorazepam (Ativan) 0.5 mg PO Q4HR PRN; Protocol PRN Reason: Anxiety Stop: 09/01/17 13:36 Last Admin: 08/03/17 14:17 Dose: 0.5 mg Memantine (Namenda) 5 mg PO BID BIBI Stop: 10/01/17 16:59 Last Admin: 08/05/17 09:35 Dose: 5 mg Mirtazapine (Remeron) 7.5 mg PO HS BIBI PRN Reason: Protocol Stop: 10/01/17 20:59 Last Admin: 08/04/17 21:16 Dose: 7.5 mg Zolpidem Tartrate (Ambien) 10 mg PO HS PRN PRN Reason: Insomnia Stop: 10/01/17 13:33 Last Admin: 08/04/17 21:17 Dose: 10 mg General: alert HEENT: NC/AT, PERRLA Neck: Supple Lungs: CTAB Cardiovascular: RRR, Normal S1, Normal S2 Abdomen: soft, non-tender, non-distended, positive bowel sound Internal Medicine Assmt/Plan - Assessment Assessment: failure to thrive acute uti dementia frequent falls - Plan Plan: fall precautions continue current orders
[2017-08-05] MEDS: Atorvastatin Calcium 10 MG TAB PO SCH (21:01)
--- NOTE | 2017-08-06 00:31 | Progress Notes ---
DATE: 08/05/2017 Case was discussed with staff of the patient, reviewed records. This is an 82-year-old male who was brought to [facility], transferred to [facility] after patient appears to be more irritable, agitated, failure to thrive. The patient was a poor historian, does not know exactly where he is, believed that he is in his own home. He does not give much information beyond that. Denies any side effects. He also has an urinary tract infection. The patient was started on Remeron 7.5 mg at bedtime, Namenda 5 mg twice a day with no side effects. The patient is calm, cooperative, compliant with the medication, no side effects, no sedation or nausea. We will continue the patient with group therapy, milieu therapy, and adjust the medication as needed. JOB# [id number]
[2017-08-06] MEDS: Lactobacillus Rhamnosus GG 15 Billion CFU CAP.SPRINK PO SCH (08:40)
--- NOTE | 2017-08-06 15:16 | Internal Medicine Prog Note ---
Internal Medicine Subjective - Subjective Service Date: 08/06/17 Patient is:: awake, verbal Per staff patient has:: tolerating meds Internal Medicine Objective - Physical Exam Vitals and I&O: Vital Signs Temp 97.4 F 08/06/17 06:15 Pulse 91 08/06/17 06:54 Resp 20 08/06/17 10:50 BP 130/60 08/06/17 06:15 Pulse Ox 95 08/06/17 06:54 Intake & Output 08/05/17 08/06/17 08/06/17 18:59 06:59 18:59 Intake Total 780 500 Balance 780 500 Intake: Oral 780 500 Other: # Voids 3 2 # Bowel Movements 2 1 Stool Characteristics Formed Brown Active Medications: Current Medications Acetaminophen (Tylenol) 650 mg PO Q4HR PRN PRN Reason: Pain Or Fever above 101 Stop: 10/01/17 13:33 Al Hydrox/Mg Hydrox/Simethicone (Maalox) 30 ml PO Q6HR PRN PRN Reason: Dyspepsia Stop: 10/01/17 13:33 Albuterol Sulfate (Albuterol 2.5mg/3ml Neb Ud) 2.5 mg HHN Q2HRT PRN PRN Reason: Shortness of Breath or Wheeze Stop: 10/01/17 13:33 Aspirin (Ecotrin) 81 mg PO DAILY [facility] Stop: 10/02/17 08:59 Last Admin: 08/06/17 08:40 Dose: 81 mg Atorvastatin Calcium (Lipitor) 10 mg PO HS BIBI PRN Reason: Protocol Stop: 10/01/17 20:59 Last Admin: 08/05/17 21:01 Dose: 10 mg Clopidogrel Bisulfate (Plavix) 75 mg PO DAILY [facility] Stop: 10/02/17 08:59 Last Admin: 08/06/17 08:40 Dose: 75 mg Docusate Sodium (Colace) 250 mg PO BID [facility] Stop: 10/01/17 16:59 Last Admin: 08/06/17 08:40 Dose: 250 mg Famotidine (Pepcid) 20 mg PO DAILY [facility] Stop: 10/02/17 08:59 Last Admin: 08/06/17 08:40 Dose: 20 mg Guaifenesin (Robitussin) 100 mg PO Q4H PRN PRN Reason: Cough or Congestion Stop: 10/01/17 13:33 Lactobacillus Rhamnosus (Culturelle 15b) 1 each PO DAILY [facility] Stop: 10/02/17 08:59 Last Admin: 08/06/17 08:40 Dose: 1 each Lorazepam (Ativan) 0.5 mg PO Q4HR PRN; Protocol PRN Reason: Anxiety Stop: 09/01/17 13:36 Last Admin: 08/06/17 08:40 Dose: 0.5 mg Memantine (Namenda) 5 mg PO BID [facility] Stop: 10/01/17 16:59 Last Admin: 08/06/17 08:40 Dose: 5 mg Mirtazapine (Remeron) 7.5 mg PO HS BIBI PRN Reason: Protocol Stop: 10/01/17 20:59 Last Admin: 08/05/17 21:00 Dose: 7.5 mg Zolpidem Tartrate (Ambien) 10 mg PO HS PRN PRN Reason: Insomnia Stop: 10/01/17 13:33 Last Admin: 08/05/17 21:02 Dose: 10 mg General: alert HEENT: NC/AT, PERRLA Neck: Supple Lungs: CTAB Cardiovascular: RRR, Normal S1, Normal S2 Abdomen: soft, non-tender, non-distended, positive bowel sound Internal Medicine Assmt/Plan - Assessment Assessment: failure to thrive acute uti dementia frequent falls - Plan Plan: fall precautions continue current orders
[2017-08-06] MEDS: Atorvastatin Calcium 10 MG TAB PO SCH (20:41)
--- NOTE | 2017-08-06 22:21 | Progress Notes ---
DATE: 08/06/2017 Case was discussed with staff of the patient, reviewed records. The patient continues to be easily agitated. However, he is eating better. He is able to feed himself. He still was a poor historian. Continues to be unpredictable, impulsive, needing redirection. He is compliant with the medication with no side effects, no sedation, no nausea. He is on Remeron 75 mg at bedtime, Namenda 5 mg twice a day. We will continue to work with the patient in group therapy, milieu therapy, adjust medication as needed. JOB# [id number]
[2017-08-07] MEDS: Lactobacillus Rhamnosus GG 15 Billion CFU CAP.SPRINK PO SCH (09:14)
--- NOTE | 2017-08-07 14:01 | Internal Medicine Prog Note ---
Internal Medicine Subjective - Subjective Service Date: 08/07/17 Patient is:: awake, verbal Per staff patient has:: tolerating meds Internal Medicine Objective - Physical Exam Vitals and I&O: Vital Signs Temp 97.8 F 08/07/17 05:52 Pulse 66 08/07/17 10:45 Resp 20 08/07/17 10:45 BP 116/71 08/07/17 07:12 Pulse Ox 95 08/07/17 10:45 Intake & Output 08/06/17 08/07/17 08/07/17 18:59 06:59 18:59 Intake Total 240 Balance 240 Intake: Oral 240 Other: # Voids 2 # Bowel Movements 1 Stool Characteristics Formed Brown Active Medications: Current Medications Acetaminophen (Tylenol) 650 mg PO Q4HR PRN PRN Reason: Pain Or Fever above 101 Stop: 10/01/17 13:33 Al Hydrox/Mg Hydrox/Simethicone (Maalox) 30 ml PO Q6HR PRN PRN Reason: Dyspepsia Stop: 10/01/17 13:33 Albuterol Sulfate (Albuterol 2.5mg/3ml Neb Ud) 2.5 mg HHN Q2HRT PRN PRN Reason: Shortness of Breath or Wheeze Stop: 10/01/17 13:33 Aspirin (Ecotrin) 81 mg PO DAILY [facility] Stop: 10/02/17 08:59 Last Admin: 08/07/17 09:14 Dose: 81 mg Atorvastatin Calcium (Lipitor) 10 mg PO HS BIBI PRN Reason: Protocol Stop: 10/01/17 20:59 Last Admin: 08/06/17 20:41 Dose: 10 mg Clopidogrel Bisulfate (Plavix) 75 mg PO DAILY [facility] Stop: 10/02/17 08:59 Last Admin: 08/07/17 09:15 Dose: 75 mg Docusate Sodium (Colace) 250 mg PO BID [facility] Stop: 10/01/17 16:59 Last Admin: 08/07/17 09:15 Dose: 250 mg Famotidine (Pepcid) 20 mg PO DAILY [facility] Stop: 10/02/17 08:59 Last Admin: 08/07/17 09:15 Dose: 20 mg Guaifenesin (Robitussin) 100 mg PO Q4H PRN PRN Reason: Cough or Congestion Stop: 10/01/17 13:33 Lactobacillus Rhamnosus (Culturelle 15b) 1 each PO DAILY [facility] Stop: 10/02/17 08:59 Last Admin: 08/07/17 09:14 Dose: 1 each Lorazepam (Ativan) 0.5 mg PO Q4HR PRN; Protocol PRN Reason: Anxiety Stop: 09/01/17 13:36 Last Admin: 08/06/17 17:09 Dose: 0.5 mg Memantine (Namenda) 5 mg PO BID [facility] Stop: 10/01/17 16:59 Last Admin: 08/07/17 09:14 Dose: 5 mg Mirtazapine (Remeron) 7.5 mg PO HS BIBI PRN Reason: Protocol Stop: 10/01/17 20:59 Last Admin: 08/06/17 20:42 Dose: 7.5 mg Zolpidem Tartrate (Ambien) 10 mg PO HS PRN PRN Reason: Insomnia Stop: 10/01/17 13:33 Last Admin: 08/05/17 21:02 Dose: 10 mg General: alert HEENT: NC/AT, PERRLA Neck: Supple Lungs: CTAB Cardiovascular: RRR, Normal S1, Normal S2 Abdomen: soft, non-tender, non-distended, positive bowel sound Internal Medicine Assmt/Plan - Assessment Assessment: failure to thrive acute uti dementia frequent falls - Plan Plan: fall precautions continue current orders
[2017-08-07] MEDS: Atorvastatin Calcium 10 MG TAB PO SCH (21:06)
--- NOTE | 2017-08-07 21:06 | Progress Notes ---
DATE: 08/07/2017 SUBJECTIVE: Chart reviewed and the patient interviewed. Also, discussed the patient's condition on the staff and reviewed records and labs. The patient is still confused. Also, is still easily agitated and he is still in irritable mood. He also is still suspicious and is still paranoid. Otherwise, the patient is compliant with taking his medications. The patient denies any side effects of medications. ASSESSMENT: The patient is still psychotic and needs close monitoring. TREATMENT PLAN: Continue to monitor his behavior and his condition closely. Also, continue to work on his agitation and adjusting psychotropic medications. JOB# [id number]
[2017-08-08] MEDS: Lactobacillus Rhamnosus GG 15 Billion CFU CAP.SPRINK PO SCH (09:34)
--- NOTE | 2017-08-08 16:39 | Discharge Summary ---
DATE OF DISCHARGE: 08/08/2017 AGE: 82. SEX: Male. PHYSICIAN: Dr. Meza. FINAL DIAGNOSIS: PRIMARY DIAGNOSIS: Psychosis, unspecified. SECONDARY DIAGNOSIS: Dementia, moderate, with psychotic features. REASON FOR HOSPITALIZATION: The patient was admitted to the hospital because of poor appetite and failure to thrive. The patient was depressed and unable to care for self. The patient also is noted to be agitated and irritable prior to his admission. HOSPITAL COURSE: The patient continued to be irritable and depressed. He also was in angry mood at times. The patient also wanted to be left alone. He is gradually was less irritable and less agitated. He also was having better appetite. Also, personal hygiene is slightly improved. The patient was discharged from the hospital. Physical exam of the patient showed no major medical problems. Blood workup was also basically within normal. The patient's hypertension and hyperlipidemia were under control and monitored closely by Dr. Long. AFTER DISCHARGE PLANS: The patient discharged from the hospital with plans for outpatient treatment and followup. EXPECTED OUTCOME AFTER DISCHARGE: Fair and the patient continued with his outpatient treatment and followup. [facility]# [id number]
== END 2017-08-08 16:43 | DRG 885 ==
LOC: GERO2 12:34
PROVIDERS: ADMIT Psychiatry & Neurology Psychiatry; ATTEND Psychiatry & Neurology Psychiatry
DX: F29 Unspecified psychosis not due to a substance or known physiological condition (principal); F03.91 Unspecified dementia, unspecified severity, with behavioral disturbance; N39.0 Urinary tract infection, site not specified; I10 Essential (primary) hypertension; R62.7 Adult failure to thrive; E78.5 Hyperlipidemia, unspecified; I25.10 Atherosclerotic heart disease of native coronary artery without angina pectoris; K21.9 Gastro-esophageal reflux disease without esophagitis; M19.90 Unspecified osteoarthritis, unspecified site; Z91.81 History of falling
CPT/HCPCS: 73030-TC-LT; 73030-TC-RT; 94760; J2060; Z7610

== ENCOUNTER 2017-08-16 06:06 | Emergency (ER) | payer MEDICARE, MEDICAID ==
--- NOTE | 2017-08-16 07:01 | ED Physician Chart ---
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 He had a large right periorbital hematoma. He is oriented to self only. He has dementia as baseline. He did not have nausea or vomiting. His GCS is [address] head without contrast showed large right hemispheric subdural hematoma with mass effect and 5mm right to left midline shift. There was a nondisplaced fracture of the right zygomatic arch. The patient had been taking aspirin 81mg and plavix 75mg daily. Allergies:: Allergies Allergy/AdvReac Type Severity Reaction Status Date / Time No Known Allergies Allergy Verified 08/16/17 06:27 Vitals:: Vital Signs - 8 hr 08/16/17 06:20 Temp 97.3 F HR 89 RR 18 BP 112/67 O2 Sat % 96 ED Review of Systems - Review of Systems General/Constitutional: No fever, No chills Skin: Bruising Head: Headache ENT: No nasal drainage Neck: No neck pain Cardio Vascular: No chest pain Pulmonary: No SOB GI: No nausea, No vomiting Musculoskeletal: Muscle pain Psychiatric: Other (dementia) Neurological: Weakness, Headache ED Past Medical History - Past Medical History Past Medical History: HTN, DM, CAD, Dyslipidemia (hyperlipidemia), PUD/GERD, Arthritis Social History: Non Smoker, No Alcohol, No Drug Use Psychiatricy History: Dementia (with psychosis) Family Medical History - Family Member Mother History Unknown: Yes ED Physical Exam - Physical Examination General/Constitutional: Awake, Alert Other Gen/Cons comments:: GCS 14 Other Head comments:: Right periorbital hematoma Eyes: PERRL Other Skin comments:: Right periorbital ecchymosis Neck: No nuchal rigidity Respiratory: No Wheeze/Rhonchi/Rales Cardio Vascular: RRR, No murmur, gallop, rubs, NL S1 S2 GI: No tenderness/rebounding/guarding Extremities: Full ROM Other Neuro/Psych comments:: unsteady gait, bilateral patellar reflex 2+ ED Labs/Radiology/EKG Results - Radiology Results Results: CT head without contrast: large right hemispheric subdural hematoma with mass effect and 5mm right to left midline shift, nondisplaced fracture of the right zygomatic arch. ED Assessment - Assessment General Assessment: Right large subdural hematoma Right zygomatic arch fracture, nondisplaced Dementia Assessment/Comments:: CBC, CMP, PT/PTT CT head without contrast EKG, CXR Nurse batch plant supervisor Renée from [facility] instructed us to call 911 to transfer patient to [facility]. ED Septic Shock - . Is Septic Shock (SBP<90, OR Lactate>4 mmol\L) present?: No - <6hrs of presentation: Vital Signs: Vital Signs - 8 hr 08/16/17 06:20 Temp 97.3 F HR 89 RR 18 BP 112/67 O2 Sat % 96 ED Reassessment (Disposition) - Reassessment Reassessment Condition:: Unchanged - Patient Disposition Discharge/Transfer:: Acute Care (other hosp) (via 911) Time Called:: 09:27am
--- NOTE | 2017-08-16 07:38 | Diagnostic Imaging Report ---
Head CT without intravenous contrast Indication: pain Comparison: Head CT on 07/31/2017 Technique: Axial images were obtained from the vertex to the skull base without IV contrast. Coronal reconstructions were made. Total DLP: 652, CTDI 35 FINDINGS: There is a large right-sided hemispheric subdural hematoma. This measures 1.4 cm in greatest transverse dimension from the inner table of skull to the brain parenchyma. Associated mass effect is noted. There is also a 5 mm right to left midline shift. The ventricles and basal cisterns are patent. There is extensive soft tissue swelling and hematoma seen along the right frontal and right preseptal region. No skull fractures identified. IMPRESSION: Large right-sided hemispheric subdural hematoma with associated mass effect and 5 mm right to left midline shift. This is probably posttraumatic in etiology as large area of soft tissue swelling and hematoma formation is seen along the right frontal and right preseptal regions. Clinical correlation and follow-up is recommended. Dr. Donato was informed of critical results on 08/16/2017 at 7:30 AM.
--- NOTE | 2017-08-16 07:41 | Diagnostic Imaging Report ---
CT maxillofacial without IV contrast History: Trauma Comparison: Head CT the same day Technique: Axial images of the maxillofacial bones were obtained without IV contrast. Reconstructions were made. Total DLP 242 CTD I 16 Findings: There is large amount of soft tissue swelling and hematoma formation seen along the right frontal and right preseptal region. The globes and intraconal compartments are intact. The bilateral orbital floors are intact. There is mucosal thickening in the paranasal sinus. No air-fluid levels identified. There is a nondisplaced fracture of the right zygomatic arch. IMPRESSION: Diffuse right frontal right preseptal soft tissue swelling and injury with hematoma formation. Nondisplaced fracture of the right zygomatic arch. Intact orbital floors.
[2017-08-16 08:33] LABS: % BASOPHILS 0.8 % (0.0-2.0); % EOSINOPHILS 0.8 % (0.0-5.0); % LYMPHOCYTES 16.4 % (20.0-50.0); % MONOCYTES 7.5 % (2.0-10.0); % NEUTROPHILS 74.5 % (40.0-80.0); BASOPHILE ABSOLUTE 0.1 Th/cumm (0-0.2); EOSINOPHILE ABSOLUTE 0.1 Th/cmm (0.1-0.4); HEMOGLOBIN 12.8 gm/dL (12-16); LYMPHOCYTE ABSOLUTE 1.4 Th/cmm (1.5-3.0); MEAN CELL VOLUME 88.8 fl (80-99); MEAN CORPUSCULAR HEMOGLOBIN 29.8 pg (27.0-31.0); MEAN CORPUSCULAR HGB CONC 33.6 pg (28.0-36.0); MEAN PLATELET VOLUME 7.1 fl; MONOCYTE ABSOLUTE 0.6 Th/cmm (0.3-1.0); NEUTROPHILE ABSOLUTE 6.1 Th/cmm (1.8-8.0); PLATELET COUNT 337 Th/cmm (150-400); RED BLOOD COUNT 4.28 Mil/cmm (3.80-5.80); RED CELL DISTRIBUTION WIDTH 14.6 % (11.5-20.0); WHITE BLOOD COUNT 8.3 Th/cmm (4.8-10.8)
[2017-08-16 08:47] LABS: INR 1.09 (0.5-1.4); PROTHROMBIN TIME (TEST) 11.3 SECONDS (9.5-11.5)
[2017-08-16 08:49] LABS: URINE BILIRUBIN NEGATIVE (NEGATIVE); URINE BLOOD SMALL (NEGATIVE); URINE GLUCOSE (UA) NEGATIVE (NEGATIVE); URINE KETONE NEGATIVE (NEGATIVE); URINE LEUKOCYTE ESTERASE NEGATIVE (NEGATIVE); URINE MICROSCOPIC INDICATED? YES; URINE NITRATE NEGATIVE (NEGATIVE); URINE PROTEIN NEGATIVE (NEGATIVE); URINE SOURCE CATH; URINE UROBILINOGEN 0.2 E.U./dL (0.2 - 1.0)
[2017-08-16 08:49] LABS: ALB/GLOB RATIO 1.3 (1.0-1.8); ALBUMIN 3.4 gm/dL (4.2-5.5); ALKALINE PHOSPHATASE 83 U/L (34-104); ANION GAP 7.6 (7.0-16.0); BILIRUBIN,TOTAL 0.4 mg/dL (0.3-1.0); BUN - UREA NITROGEN 16 mg/dL (7-25); CALCIUM SERUM 9.4 mg/dL (8.6-10.3); CARBON DIOXIDE 28.2 mEq/L (21.0-31.0); CHLORIDE 106 mEq/L (98-107); CREATININE - SERUM 0.8 mg/dL (0.7-1.3); GLUCOSE 88 mg/dL (70-105); POTASSIUM SERUM 3.8 mEq/L (3.5-5.1); SGOT 46 U/L (13-39); SGPT/ALT 39 U/L (7-52); SODIUM SERUM 138 mEq/L (136-145); TOTAL PROTEIN,SERUM 6.1 gm/dL (6.0-8.3)
[2017-08-16 08:50] LABS: URINE CLARITY CLEAR (CLEAR); URINE COLOR YELLOW
[2017-08-16 09:03] LABS: URINE BACTERIA 1+ /hpf (NONE SEEN); URINE EPITHELIAL CELLS FEW /lpf (FEW)
--- NOTE | 2017-08-16 09:32 | Diagnostic Imaging Report ---
CHEST X-RAY: AP view INDICATION: Shortness of breath COMPARISON: 08/01/2017 FINDINGS: Small left effusion is seen with left basal atelectasis versus infiltrate. Borderline prominent heart is noted. Degenerative changes of the spine are noted. IMPRESSION: Small left effusion with left basal atelectasis versus infiltrate.
== END 2017-08-16 09:25 | disposition short-term general hospital (02) ==
LOC: ER 06:06
DX: S05.11XA Contusion of eyeball and orbital tissues, right eye, initial encounter (principal); I10 Essential (primary) hypertension; E11.9 Type 2 diabetes mellitus without complications; I25.10 Atherosclerotic heart disease of native coronary artery without angina pectoris; E78.5 Hyperlipidemia, unspecified; K21.9 Gastro-esophageal reflux disease without esophagitis; W19.XXXA Unspecified fall, initial encounter; Y93.89 Activity, other specified; Y92.89 Other specified places as the place of occurrence of the external cause; Y99.8 Other external cause status
CPT/HCPCS: 36415-UA; 70450-TC; 70486-TC; 71045-TC; 80053-TC; 81001-TC; 85025-TC; 85610-TC; 93005; Z7610